=== PATIENT | female | born 1970 | race African-American/Black ===

== ENCOUNTER 2016-10-04 19:36 | Emergency (ER) | payer OTHER ==
[~2016-10-04] VITALS: Ht 154.9 cm; Wt 70.3 kg
--- NOTE | 2016-10-04 20:45 | RADIOLOGY REPORT ---
EXAMINATIONS: HAND 2 VIEWS, RIGHT AND FOREARM 2 VIEWS, RIGHT CLINICAL INFORMATION: Right hand and forearm pain and swelling. COMPARISON: None. TECHNIQUE: PA and lateral views of the right hand were obtained. AP and lateral views of the right forearm are provided. FINDINGS: There are no fractures or dislocations. There is no displacement of the pronator fat pad. The proximal carpal row is intact. There is no elbow joint effusion. IMPRESSION: Unremarkable right hand and forearm radiographs.
--- NOTE | 2016-10-04 20:52 | ED UPPER/LOWER EXTREMITY COMPL ---
History of Present Illness General Chief Complaint: Upper Extremity Problem Stated Complaint: RIGHT HAND SWELLING Source: patient Exam Limitations: no limitations Vital Signs & Intake/Output Vital Signs & Intake/Output Vital Signs Date Time Temp Pulse Resp B/P B/P Pulse O2 O2 Flow FiO2 Mean Ox Delivery Rate 10/04 1954 97.7 96 18 143/84 98 Room Air Allergies Coded Allergies: NO KNOWN ALLERGIES (08/16/14) Reconcile Medications Meloxicam (Mobic) 15 MG TABLET 1 TAB PO DAILY PRN PAIN Triage Note: PT TO ED C/O LEFT ARM PAIN AND SWELLING , ELBOW TO FINGERS. DENIES INJURY. DENIES BUG BITE. PAIN WORSE WITH MOVEMENT. NO REDNESS NOTED Triage Nurses Notes Reviewed? yes Onset: Abrupt Duration: constant Timing: single episode today Severity: moderate Severity Numbers: 6 Method of Injury: unknown : No Patient currently breastfeeds: No HPI: Patient is a 46-year-old female who presents emergency room today with acute onset of right-sided proximal forearm muscular pain. Patient denies any mechanism of injury however does state that she is right-handed and does use her arms a lot with driving and typing. Patient denies any trauma patient does admit to distal forearm swelling No paresthesia Past History Travel History Traveled to [place] past 21 day No Medical History Any Pertinent Medical History? see below for history Gastrointestinal: GERD Surgical History Surgical History: non-contributory Psychosocial History What is your primary language Upper Sorbian Tobacco Use: Never used ETOH Use: denies use Illicit Drug Use: denies illicit drug use Family History Hx Contributory? No Review of Systems Review of Systems Constitutional: Reports: no symptoms. EENTM: Reports: no symptoms. Respiratory: Reports: no symptoms. Cardiovascular: Reports: no symptoms. Gastrointestinal/Abdominal: Reports: no symptoms. Genitourinary: Reports: no symptoms. Musculoskeletal: Reports: see HPI, joint pain. Skin: Reports: no symptoms. Neurological/Psychological: Reports: no symptoms. Hematologic/Endocrine: Reports: no symptoms. Immunological: Reports: no symptoms. All Other Systems: Reviewed and Negative Physical Exam Physical Exam General Appearance: no apparent distress, alert, comfortable Neurologic/Tendon: normal sensation, normal motor functions, normal tendon functions, responds to pain, no evidence tendon injury, no pulse deficit Skin: intact, normal color, warm/dry Comments: Well-developed well-nourished no apparent distress. HEENT: Atraumatic, extraocular motion intact Neck: Supple, no lymphadenopathy Back: Nontender Respiratory: No respiratory distress Extremities: Right elbow noted point tenderness to proximal forearm decreased active range of motion on flexion and extension Noted pain with elbow flexion Palpable distal biceps tendon noted nontender Right wrist normal inspection nontender full active range of motion Right hand normal inspection nontender Right upper extremity dermatomes intact radial pulse +2 -Neuro: Alert and oriented x3 Psych: Mood affect normal, normal memory normal judgment. Progress Differential Diagnosis: arterial insufficiency, cellulitis, CHF, compartment syndrome, contusion, dislocation, DVT, fracture, gout, septic arthritis, sprain, tendon injury Plan of Care: Current Medications Sig/Selam Start time Last Medication Dose Stop Time Status Admin Ibuprofen 600 MG ONCE ONE 10/04 2199 AC (Motrin) 10/04 2200 Due to history of present illness and exam findings patient has reproducible pain upon elbow flexion to the brachial radialis muscular belly. No signs of infection to this region no swelling no fluctuance no erythema. Patient has unremarkable x-rays and ultrasound was unremarkable for concerns of DVT. Patient was administered a shoulder immobilizer for comfort and stability. Patient was strongly advised to follow up with orthopedic doctor. ([facility]) Diagnostic Imaging: Viewed by Me: Radiology Read, Ultrasound. Radiology Impression: no acute abnormality Comments: PATIENT: LALITA LAGOS PRESENT AGE: 46 PATIENT ACCOUNT NO: [id number] : 72 LOCATION: [facility] [place] ORDERING PHYSICIAN: KAMALJIT LICONA MD SERVICE DATE: 10/04/16 EXAM TYPE: RAD - XRY-FOREARM, RIGHT; XRY-HAND TWO VIEWS R EXAMINATIONS: HAND 2 VIEWS, RIGHT AND FOREARM 2 VIEWS, RIGHT CLINICAL INFORMATION: Right hand and forearm pain and swelling. COMPARISON: None. TECHNIQUE: PA and lateral views of the right hand were obtained. AP and lateral views of the right forearm are provided. FINDINGS: There are no fractures or dislocations. There is no displacement of the pronator fat pad. The proximal carpal row is intact. There is no elbow joint effusion. IMPRESSION: Unremarkable right hand and forearm radiographs. DICTATED BY: EMMANUEL ROSS MD DATE/TIME DICTATED:10/04/162036 DRILLING FOREMAN:KRISTA PATIENT: LALITA LAGOS PRESENT AGE: 46 PATIENT ACCOUNT NO: [id number] : 72 LOCATION: [facility] [place] ORDERING PHYSICIAN: KAMALJIT LICONA MD SERVICE DATE: 10/04/16 EXAM TYPE: US - US-UNILATERAL VENOUS DOPPLER EXAMINATION: US TRIPLEX UPPER EXTREMITY, RIGHT CLINICAL INFORMATION: Right upper extremity pain and swelling. COMPARISON: None. TECHNIQUE: Color-flow triplex imaging with spectral analysis and compression Doppler were performed on the right upper extremity. FINDINGS: Respiratory variation, normal compression and flow are noted throughout the imaged right upper extremity veins. The right internal jugular, subclavian, axillary, brachial, basilic and cephalic veins are patent, without evidence of thrombosis. IMPRESSION: No evidence of deep venous thrombosis involving the imaged right upper extremity veins as described above. DICTATED BY: KLEVER JOHNSON MD DATE/TIME DICTATED:10/04/162053 DRILLING FOREMAN:KRISTA DATE/TIME TRANSCRIBED:10/04/162053 PATIENT: LALITA LAGOS PRESENT AGE: 46 PATIENT ACCOUNT NO: [id number] : 72 LOCATION: [facility] [place] ORDERING PHYSICIAN: KAMALJIT LICONA MD SERVICE DATE: 10/04/16 EXAM TYPE: RAD - XRY-FOREARM, RIGHT; XRY-HAND TWO VIEWS R EXAMINATIONS: HAND 2 VIEWS, RIGHT AND FOREARM 2 VIEWS, RIGHT CLINICAL INFORMATION: Right hand and forearm pain and swelling. COMPARISON: None. TECHNIQUE: PA and lateral views of the right hand were obtained. AP and lateral views of the right forearm are provided. FINDINGS: There are no fractures or dislocations. There is no displacement of the pronator fat pad. The proximal carpal row is intact. There is no elbow joint effusion. IMPRESSION: Unremarkable right hand and forearm radiographs. DICTATED BY: EMMANUEL ROSS MD DATE/TIME DICTATED:10/04/162036 DRILLING FOREMAN:KRISTA Departure Departure Disposition: HOME OR SELF CARE Condition: Stable Clinical Impression Primary Impression: Right forearm pain Referrals: ESTEBAN GERMAN,ALF LOMBARDI (PCP/Family) ORALIA HER MD Additional Instructions: As discussed begin icing the area directly 20 minutes every 2 hours Begin the prescription of meloxicam for pain and inflammation Begin using the shoulder immobilizer until YOU can move your arm without pain Prescriptions are waiting a [facility], [place]. If no better on Tuesday follow up with orthopedic Dr. Her. If symptoms worsen return to emergency room Departure Forms: Customer Survey General Discharge Information Prescriptions: Current Visit Scripts Meloxicam (Mobic) 1 TAB PO DAILY PRN PAIN #15 TAB
--- NOTE | 2016-10-04 21:05 | ULTRASOUND REPORT ---
EXAMINATION: US TRIPLEX UPPER EXTREMITY, RIGHT CLINICAL INFORMATION: Right upper extremity pain and swelling. COMPARISON: None. TECHNIQUE: Color-flow triplex imaging with spectral analysis and compression Doppler were performed on the right upper extremity. FINDINGS: Respiratory variation, normal compression and flow are noted throughout the imaged right upper extremity veins. The right internal jugular, subclavian, axillary, brachial, basilic and cephalic veins are patent, without evidence of thrombosis. IMPRESSION: No evidence of deep venous thrombosis involving the imaged right upper extremity veins as described above.
[2016-10-04] MEDS ORDERED: MOBIC15 M1 PO (21:34)
[2016-10-04 22:01] VITALS: BP 141/81
== END 2016-10-04 22:01 ==
LOC: ERH 19:36
DX: M79.631 Pain in right forearm (principal)
CPT/HCPCS: 73090-RT; 73120-RT